=== PATIENT | male | born 1975 | race Caucasian/White ===

== ENCOUNTER 2019-10-01 10:06 | Emergency (ER) | payer MEDICAID ==
[~2019-10-01] VITALS: Ht 175.3 cm; Wt 68.0 kg
[2019-10-01] MEDS ORDERED: ACETAMINOPHEN 325MG TABLET PO ONE (11:30)
[2019-10-01 12:22] VITALS: BP 125/80
== END 2019-10-01 12:23 | disposition home or self-care (01) ==
LOC: ER 10:06
DX: B34.9 Viral infection, unspecified (principal)
CPT/HCPCS: 71045; 99283

== ENCOUNTER 2019-10-03 08:56 | Emergency (ER) | payer MEDICAID ==
[~2019-10-03] VITALS: Ht 162.6 cm; Wt 52.0 kg
[2019-10-03 08:58] VITALS: BP 111/79
== END 2019-10-03 10:19 | disposition home or self-care (01) ==
LOC: ER 08:56
DX: Z03.818 Encounter for observation for suspected exposure to other biological agents ruled out (principal); B34.9 Viral infection, unspecified; M79.10 Myalgia, unspecified site
CPT/HCPCS: 99281